=== PATIENT | female | born 1970 | race Caucasian/White ===

== ENCOUNTER 2017-02-17 18:45 | Emergency (ER) | payer SELFPAY ==
[2017-02-17 19:21] LABS: BILIRUBIN,URINE NEGATIVE (NEGATIVE); GLUCOSE, URINE (UA) NEGATIVE (NEGATIVE); KETONES,URINE (UA) NEGATIVE (NEGATIVE); LEUKOCYTE ESTERASE, URINE NEGATIVE (NEGATIVE); NITRITE,URINE NEGATIVE (NEGATIVE); OCCULT BLOOD,URINE NEGATIVE (NEGATIVE); PROTEIN,URINE NEGATIVE (NEGATIVE); UROBILINOGEN,URINE 0.2 (NORMAL) E.U./dL (NORMAL)
[2017-02-17 19:24] LABS: CLARITY,URINE CLEAR (CLEAR)
[2017-02-17 20:08] LABS: BASOPHILS % (AUTO) 0.5 %; EOSINOPHILS # (AUTO) 0.1 10^3/uL (0.0-0.7); EOSINOPHILS % (AUTO) 2.2 %; HGB - HEMOGLOBIN 12.7 g/dL (12.0-16.0); LYMPHOCYTES # (AUTO) 2.8 10^3/uL (1.5-3.5); MEAN CORPUSCULAR HEMOGLOBIN 31.3 pg (27.0-31.0); MEAN CORPUSCULAR HGB CONC 33.3 g/dL (32.0-36.0); MEAN CORPUSCULAR VOLUME 93.9 fL (81.0-99.0); MEAN PLATELET VOLUME 9.5 fL (7.9-10.8); MONOCYTES # (AUTO) 0.6 10^3/uL (0.0-1.0); MONOCYTES % (AUTO) 10.1 %; NEUTROPHILS # (AUTO) 2.2 10^3/uL (1.5-6.6); NEUTROPHILS % (AUTO) 38.2 %; PLT - PLATELET COUNT 205 10^3/uL (130-450); RED BLOOD COUNT 4.07 10^6/uL (4.20-5.40); RED CELL DISTRIBUTION WIDTH 13.7 % (12.0-15.0); WHITE BLOOD COUNT 5.8 x10^3/uL (4.8-10.8)
[2017-02-17 20:19] LABS: ALBUMIN 4.2 g/dL (3.2-5.5); ALBUMIN/GLOBULIN RATIO 1.4 (1.0-2.2); BILIRUBIN,TOTAL 0.4 mg/dL (0.2-1.0); CALCIUM 9.2 mg/dL (8.5-10.3); CREATININE 0.6 mg/dL (0.4-1.0); TOTAL PROTEIN 7.1 g/dL (6.7-8.2)
[2017-02-17] MEDS ORDERED: ONDANSETRON 4 MG/2 ML VIAL IVP STA (20:28)
[2017-02-17] MEDS ORDERED: ACETAMINOPHEN 1,000 MG/100 ML 100 ML IV STA (20:28)
[2017-02-17] MEDS ORDERED: IOPAMIDOL-300 100 ML VIAL ONE (21:11)
[2017-02-17] MEDS ORDERED: IOPAMIDOL-300 100 ML VIAL IVP ONE (21:25)
[2017-02-17] MEDS ORDERED: MORPHINE 10 MG/ML VIAL IVP STA (21:32)
[2017-02-17] MEDS ORDERED: HYDROmorphone 1 MG/ML SYRINGE IVP STA (21:48)
--- NOTE | 2017-02-17 22:20 | CT Report ---
EXAM: CT ABDOMEN AND PELVIS EXAM DATE: 02/17/2017 09:18 PM. CLINICAL HISTORY: Lower abdomen pain. COMPARISONS: 10/02/2014. TECHNIQUE: Routine helical CT imaging was performed through the abdomen and pelvis. IV contrast: 100 cc of Isovue-300. Enteric contrast: No. Reconstructions: Coronal and sagittal. In accordance with CT protocol optimization, one or more of the following dose reduction techniques w ere utilized for this exam: automated exposure control, adjustment of mA and/or KV based on patient s ize, or use of iterative reconstructive technique. FINDINGS: Lung Bases: Unremarkable. Liver: Normal. No masses. Gallbladder/Bile Ducts: Cholecystectomy, with abnormal 13 mm common bile duct diameter. Spleen: Normal. Pancreas: Normal. Adrenal Glands: Normal. Kidneys: Normal. No masses or hydronephrosis. Peritoneal Cavity/Bowel: Normal. No free fluid, free air or adenopathy. No masses or acute inflammato ry process. The appendix is well visualized and normal. Pelvic Organs: Hysterectomy. Unremarkable bladder. Vasculature: No aneurysms or other significant abnormality. Bones: No significant abnormality. Other: Stable fat-containing ventral hernia anterior to the left lobe of the liver likely from laparo scopic cholecystectomy. IMPRESSION: 1. Cholecystectomy with abnormal common bile duct diameter of 13 mm. 2. Hysterectomy. 3. Stable fat-containing ventral hernia anterior to the left lobe of the liver. [facility] Referring Provider Line: [phone] SITE ID: [id number]
--- NOTE | 2017-02-17 22:24 | ED Physician Documentation ---
PD HPI ABD PAIN - Stated complaint Stated Complaint: LOW ABD PX - Chief complaint Chief Complaint: Abd Pain - History obtained from History obtained from: Patient, Family - History of Present Illness Timing - onset: Today Timing - duration: Hours (2) Timing - details: Abrupt onset Pain level max: 8 Pain level now: 8 Quality: Aching, Dull Location: RLQ, Suprapubic, LLQ Radiation: Other (non-radiating) Improved by: Other (nothing) Worsened by: Other (stress at home) Associated symptoms: No: Fever, Nausea, Vomiting, Hematemesis, Diarrhea, Constipation, Melena, Hematochezia, Dysuria Similar symptoms before: Diagnosis (abdominal pain) Recently seen: Not recently seen - Additional information Additional information: states this occurs when she becomes stressed. 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: Hysterectomy - Present Medications Home Medications: Ambulatory Orders Medication Instructions Recorded Confirmed LORazepam [Ativan] 0.5 mg PO Q8H PRN #7 tablet 02/17/17 Oxycodone HCl [Oxycontin] 60 mg PO BID 02/17/17 02/17/17 - Allergies Allergies/Adverse Reactions: Allergies Allergy/AdvReac Type Severity Reaction Status Date / Time codeine Allergy Rash Verified 02/17/17 18:55 ketorolac tromethamine * Allergy Anaphylaxis Verified 02/17/17 18:55 [From Toradol] Sulfa (Sulfonamide Allergy Rash Verified 02/17/17 18:55 Antibiotics) aspirin AdvReac Nausea Verified 02/17/17 18:55 prochlorperazine edisylate * AdvReac Rash Verified 02/17/17 18:55 [From Compazine] prochlorperazine maleate * AdvReac Rash Verified 02/17/17 18:55 [From Compazine] - Social History Does the pt smoke?: Yes Smoking Status: Current every day smoker Does the pt drink ETOH?: No Does the pt have substance abuse?: No PD ED PE NORMAL - Vitals Vital signs reviewed: Yes - General General: Alert and oriented X 3, No acute distress, Well developed/nourished - HEENT HEENT: Moist mucous membranes - Neck Neck: Supple, no meningeal sign - Cardiac Cardiac: RRR - Respiratory Respiratory: No respiratory distress, Clear bilaterally - Abdomen Abdomen: Soft, Non tender, Non distended - Back Back: No CVA TTP - Derm Derm: Warm and dry, No rash - Neuro Neuro: Alert and oriented X 3 - Psych Psych: Normal mood, Normal affect Results - Vitals Vitals: Vital Signs - 24 hr 02/17/17 02/17/17 02/17/17 18:52 20:51 22:13 Temperature 36.5 C Heart Rate 83 64 62 Respiratory 17 18 20 Rate Blood Pressure 101/82 H 112/66 O2 Saturation 97 95 96 02/17/17 22:43 Temperature Heart Rate 70 Respiratory 18 Rate Blood Pressure 106/68 O2 Saturation 97 Oxygen O2 Source Room air - Labs Labs: Laboratory Tests 02/17/17 02/17/17 02/17/17 18:20 19:51 19:51 WBC 5.8 RBC 4.07 L Hgb 12.7 Hct 38.3 MCV 93.9 MCH 31.3 H MCHC 33.3 RDW 13.7 Plt Count 205 MPV 9.5 Neut # 2.2 Lymph # 2.8 [place] # 0.6 Eos # 0.1 Baso # 0.0 Absolute Nucleated RBC 0.00 Nucleated RBC % 0.0 Sodium 138 Potassium 4.2 Chloride 103 Carbon Dioxide 29 Anion Gap 6.0 BUN 11 Creatinine 0.6 Estimated GFR (MDRD) 107 Glucose 75 Calcium 9.2 Total Bilirubin 0.4 AST 13 ALT 19 Alkaline Phosphatase 69 Total Protein 7.1 Albumin 4.2 Globulin 2.9 Albumin/Globulin Ratio 1.4 Lipase 14 L Urine Color YELLOW Urine Clarity CLEAR Urine pH 6.0 Ur Specific [place] >=1.030 H Urine Protein NEGATIVE Urine Glucose (UA) NEGATIVE Urine Ketones NEGATIVE Urine Occult Blood NEGATIVE Urine Nitrite NEGATIVE Urine Bilirubin NEGATIVE Urine Urobilinogen 0.2 (NORMAL) Ur Leukocyte Esterase NEGATIVE Ur Microscopic Review NOT INDICATED Urine Culture Comments NOT INDICATED - Rads (name of study) abdomen/pelvis CT Radiology: Prelim report reviewed, EMP read contemporaneously, See rad report ( Cholecystectomy with abnormal common bile duct diameter of 13 mm. Hysterectomy. Stable fat-containing ventral hernia anterior to the left lobe of the liver. ) PD MEDICAL DECISION MAKING - ED course Complexity details: reviewed results, re-evaluated patient, considered differential, d/w patient ED course: Patient is a 46-year-old female who presents to the emergency department with abdominal pain. Unclear etiology. Possible stress-related? Pain well controlled here. Will place him a small amount of Ativan for home as this is helped her in the past. She is well-appearing, nontoxic. Afebrile. Sleeping in the emergency department. Patient and family counseled regarding signs and symptoms for which I believe and urgent re-evaluation would be necessary. Patient with good understanding of and agreement to plan and is comfortable going home at this time This document was made in part using voice recognition software. While efforts are made to proofread this document, sound alike and grammatical errors may occur. Departure - Departure Disposition: 01 Home, Self Care Clinical Impression: Abdominal pain Qualifiers: Abdominal location: lower abdomen, unspecified Qualified Code(s): R10.30 - Lower abdominal pain, unspecified Condition: Good Instructions: ED Abdominal Pain Unkn Cause Follow-Up: Maynor Fitch DO [Primary Care Provider] - Within 3 Days Prescriptions: LORazepam [Ativan] 0.5 mg PO Q8H PRN #7 tablet PRN Reason: Anxiety Comments: The cause of your symptoms is unclear today, but may be related to stress and anxiety as this is happened to her before during stressful times in her life. Follow-up with your doctor for further evaluation and care. Do not drive or operate heavy machinery while taking the Ativan. Discharge Date/Time: 02/17/17 22:47
[2017-02-17] MEDS ORDERED: LORazepam 2 MG/ML VIAL IVP STA (22:32)
[2017-02-17 22:47] VITALS: BP 106/68
== END 2017-02-17 22:47 | disposition home or self-care (01) ==
LOC: ED 18:45
DX: R10.32 Left lower quadrant pain (principal); R10.31 Right lower quadrant pain; F17.200 Nicotine dependence, unspecified, uncomplicated; Z90.710 Acquired absence of both cervix and uterus
CPT/HCPCS: 36415; 74177; 80053; 81003; 83690; 85025; 96365; 96375; 99283; 99284; J0131; J1170; J2060; Q9967; 81001; 87086

== ENCOUNTER 2017-06-24 11:56 | Emergency (ER) | payer SELFPAY ==
[2017-06-24] MEDS: PROMETHAZINE 25 MG/1 ML VIAL IM STA (14:13)
[2017-06-24] MEDS: MORPHINE 2 MG/ML SYRINGE IM STA (14:14)
[2017-06-24] MEDS: DEXAMETHASONE 10 MG/ML VIAL PO STA (14:16)
[2017-06-24] MEDS: LIDOCAINE PATCH 5% TOP PRN (14:16)
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
[2017-06-24] MEDS ORDERED: CHERRY SYRUP 10 ML UDC PO ONE (14:17)
[2017-06-24 14:58] VITALS: BP 100/54
== END 2017-06-24 14:57 | disposition home or self-care (01) ==
LOC: ED 11:56
DX: M54.41 Lumbago with sciatica, right side (principal); M79.7 Fibromyalgia; M06.9 Rheumatoid arthritis, unspecified; Z98.84 Bariatric surgery status; F17.200 Nicotine dependence, unspecified, uncomplicated; Z79.899 Other long term (current) drug therapy
CPT/HCPCS: 96372; 99283

== ENCOUNTER 2017-10-11 17:29 | Outpatient (CLI) | payer SELFPAY | END 2017-10-11 17:30 | disposition critical access hospital (66) | LOC: EMS 17:29 | PROVIDERS: ATTEND Surgery | DX: S09.90XA Unspecified injury of head, initial encounter (principal); S19.9XXA Unspecified injury of neck, initial encounter; S29.9XXA Unspecified injury of thorax, initial encounter; V83.0XXA Driver of special industrial vehicle injured in traffic accident, initial encounter; W22.11XA Striking against or struck by driver side automobile airbag, initial encounter; Y92.413 State road as the place of occurrence of the external cause | CPT/HCPCS: A0425; A0427; A0999 ==

== ENCOUNTER 2017-10-11 17:41 | Emergency (ER) | payer SELFPAY ==
[2017-10-11] MEDS ORDERED: HYDROmorphone 1 MG/ML CARPUJECT IVP STA (17:47)
[2017-10-11] MEDS ORDERED: IOPAMIDOL-300 100 ML VIAL ONE (17:53)
[2017-10-11 17:55] LABS: BASOPHILS % (AUTO) 0.4 %; EOSINOPHILS # (AUTO) 0.1 10^3/uL (0.0-0.7); EOSINOPHILS % (AUTO) 0.9 %; HGB - HEMOGLOBIN 13.4 g/dL (12.0-16.0); LYMPHOCYTES # (AUTO) 2.1 10^3/uL (1.5-3.5); LYMPHOCYTES % (AUTO) 26.6 %; MEAN CORPUSCULAR HEMOGLOBIN 32.5 pg (27.0-31.0); MEAN CORPUSCULAR HGB CONC 34.7 g/dL (32.0-36.0); MEAN CORPUSCULAR VOLUME 93.6 fL (81.0-99.0); MEAN PLATELET VOLUME 8.6 fL (7.9-10.8); MONOCYTES # (AUTO) 0.4 10^3/uL (0.0-1.0); MONOCYTES % (AUTO) 4.4 %; NEUTROPHILS # (AUTO) 5.5 10^3/uL (1.5-6.6); NEUTROPHILS % (AUTO) 67.7 %; PLT - PLATELET COUNT 233 10^3/uL (130-450); RED BLOOD COUNT 4.11 10^6/uL (4.20-5.40); RED CELL DISTRIBUTION WIDTH 13.4 % (12.0-15.0); WHITE BLOOD COUNT 8.1 x10^3/uL (4.8-10.8)
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
[2017-10-11 18:06] LABS: ALBUMIN 4.3 g/dL (3.2-5.5); ALBUMIN/GLOBULIN RATIO 1.6 (1.0-2.2); ALKALINE PHOSPHATASE 58 IU/L (42-121); ALT ALANINE AMINOTRANSFERASE 19 IU/L (10-60); AST ASPARTATE AMINOTRANSFERASE 18 IU/L (10-42); BILIRUBIN,TOTAL 0.7 mg/dL (0.2-1.0); BUN - BLOOD UREA NITROGEN 17 mg/dL (6-20); CALCIUM 9.2 mg/dL (8.5-10.3); CARBON DIOXIDE - CO2 28 mmol/L (21-32); CHLORIDE 104 mmol/L (101-111); CREATININE 0.6 mg/dL (0.4-1.0); GFR - MDRD 106 (>89); GLUCOSE 93 mg/dL (70-100); LIPASE 61 U/L (22-51); SODIUM 139 mmol/L (135-145)
[2017-10-11] MEDS ORDERED: IOPAMIDOL-300 100 ML VIAL IVP ONE (18:34)
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
[2017-10-11 19:57] VITALS: BP 142/100
== END 2017-10-11 19:58 | disposition home or self-care (01) ==
LOC: EDUNIT# → ED 17:41
DX: S06.0X1A Concussion with loss of consciousness of 30 minutes or less, initial encounter (principal); V59.40XA Driver of pick-up truck or van injured in collision with unspecified motor vehicles in traffic accident, initial encounter; Y92.410 Unspecified street and highway as the place of occurrence of the external cause; M54.5 Low back pain; K43.9 Ventral hernia without obstruction or gangrene; G89.29 Other chronic pain; R03.0 Elevated blood-pressure reading, without diagnosis of hypertension; F17.200 Nicotine dependence, unspecified, uncomplicated
CPT/HCPCS: 36415; 70450; 70486; 71260; 72125; 74177; 80053; 80320; 83690; 85025; 96374; 99284; J1170; Q9967

== ENCOUNTER 2018-08-31 15:06 | Emergency (ER) | payer SELFPAY ==
[2018-08-31 15:30] VITALS: BP 124/82
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
== END 2018-08-31 15:42 | disposition home or self-care (01) ==
LOC: ED 15:06
DX: Z76.0 Encounter for issue of repeat prescription (principal); G89.29 Other chronic pain; M54.9 Dorsalgia, unspecified; R03.0 Elevated blood-pressure reading, without diagnosis of hypertension; F17.200 Nicotine dependence, unspecified, uncomplicated
CPT/HCPCS: 99281